=== PATIENT | female | born 1995 | race Caucasian/White ===

== ENCOUNTER 2016-11-04 16:08 | Emergency (ER) | payer OTHER ==
[2016-11-04 16:42] VITALS: BP 116/73
--- NOTE | 2016-11-04 16:43 | UC ---
Throat Pain/Nasal Alvin HPI - HPI Summary HPI Summary: 21 YEAR OLD FEMALE PRESENTS WITH COMPLAINS SINUS CONGESTION AND PRESSURE. - History of Current Complaint Chief Complaint: UCGeneralIllness Stated Complaint: SINUS PRESSURE Time Seen by Provider: 11/04/16 16:43 Hx Last Menstrual Period: August 2015- On BCP - Allergies/Home Medications Allergies/Adverse Reactions: Allergies Allergy/AdvReac Type Severity Reaction Status Date / Time No Known Allergies Allergy Verified 11/04/16 16:36 Home Medications: Home Medications diPHENhydraMINE PO* [Benadryl PO 25 MG TAB*] 50 mg PO Q6H PRN 11/04/16 [History Confirmed 11/04/16] PMH/Surg Hx/FS Hx/Imm Hx - Surgical History Surgical History: Yes Surgery Procedure, Year, and Place: wisdom teeth. Tonsils Nov 2015 - Family History Known Family History: Positive: None - Social History Alcohol Use: Rare Substance Use Type: None Smoking Status (MU): Never Smoked Tobacco - Immunization History Most Recent Influenza Vaccination: 2015 Most Recent Tetanus Shot: UTD Most Recent Pneumonia Vaccination: N/A Review of Systems Constitutional: Negative Skin: Negative Eyes: Negative ENT: Nasal Discharge, Sinus Congestion, Sinus Pain/Tenderness Respiratory: Negative Cardiovascular: Negative Gastrointestinal: Negative Genitourinary: Negative Motor: Negative Neurovascular: Negative Musculoskeletal: Negative Neurological: Negative Psychological: Negative All Other Systems Reviewed And Are Negative: Yes Physical Exam Triage Information Reviewed: Yes Vital Signs: Initial Vital Signs Temp 37.2 C 11/04/16 16:37 Pulse 113 11/04/16 16:37 Resp 16 11/04/16 16:37 BP 116/73 11/04/16 16:37 Pulse Ox 98 11/04/16 16:37 Eye Exam: Normal ENT: Positive: Pharyngeal erythema, Nasal congestion Dental Exam: Normal Neck exam: Normal Neck: Positive: 1 Respiratory Exam: Normal Cardiovascular Exam: Normal Abdominal Exam: Normal Musculoskeletal Exam: Normal Neurological Exam: Normal Psychological Exam: Normal Skin Exam: Normal Throat Pain/Nasal Course/Dx - Differential Dx/Diagnosis Provider Diagnoses: SINUSITIS Discharge - Discharge Plan Condition: Stable Disposition: HOME Prescriptions: Amoxicillin CAP* [Amoxicillin 500 MG CAP*] 500 mg PO TID #30 cap Fluticasone NASAL SPRAY 50MCG* [Flonase NASAL SPRAY 50MCG*] 2 spray BOTH NARES DAILY #1 btl Patient Education Materials: Sinusitis (ED) Referrals: Sherine Johnson MD [Primary Care Provider] - If Needed
== END 2016-11-04 16:50 | disposition home or self-care (01) ==
LOC: UCCORT 16:08
DX: J32.9 Chronic sinusitis, unspecified (principal)
CPT/HCPCS: 99212; G0463